=== PATIENT | male | born 1970 | race Caucasian/White ===

== ENCOUNTER 2019-03-06 13:10 | Emergency (ER) | payer BC ==
[~2019-03-06] VITALS: Ht 172.7 cm; Wt 81.7 kg
[~2019-03-06 13:10] MED LIST: FLOMAX PO; NOHOMEMEDICATIONS; NORCO 5-325 TA1 EACH PO
[2019-03-06 13:36] LABS: ABSOLUTE BASOPHILS 0.1 thou/uL (0.0-0.2); ABSOLUTE EOSINOPHILS 0.1 thou/uL (0.0-0.7); ABSOLUTE LYMPHOCYTES 1.3 thou/uL (0.8-5.3); ABSOLUTE MONOCYTES 0.6 thou/uL (0.0-1.2); ABSOLUTE NEUTROPHILS 9.9 thou/uL (1.6-8.1); BASOPHILS 0.5 %; EOSINOPHILS 0.5 %; HEMATOCRIT 45.4 % (42.0-52.0); LYMPHOCYTES 11.3 %; MCH 28.9 pg (26.0-34.0); MCHC 33.1 g/dL (28.0-37.0); MCV 87.2 fL (80.0-100.0); MONOCYTES 4.8 %; MPV 7.7 fl. (7.2-11.1); NUCLEATED RBCS 0 /100WBC; PLATELET COUNT* 218 thou/uL (150-400); POLYS 82.9 %; RBC 5.21 mil/uL (4.50-6.00); RDW-CV 13.4 % (10.5-14.5); WBC 11.9 thou/uL (4.0-11.0)
[2019-03-06 13:43] LABS: URINE BILIRUBIN NEGATIVE (Negative); URINE BLOOD 3+ (Negative); URINE CLARITY CLEAR; URINE COLOR YELLOW; URINE GLUCOSE-RANDOM NEGATIVE (Negative); URINE KETONES 1+ (Negative); URINE LEUKOCYTES-REFLEX NEGATIVE (Negative); URINE NITRITE-REFLEX NEGATIVE (Negative); URINE PROTEIN 1+ (Negative); URINE SPECIFIC GRAVITY >= 1.030 (1.005-1.030); URINE UROBILINOGEN 0.2 E.U./dl (0.2-1.0)
[2019-03-06 13:48] LABS: BACTERIA-REFLEX 1-9 Few /HPF (None Seen); CASTS None Seen /LPF (None Seen); CRYSTALS None Seen /LPF (None Seen); MUCUS None Seen strn/LPF (None Seen); SQUAMOUS 0-3 Few /LPF (0-3); URINE RBC >20 Many /HPF (0-2); URINE WBC-REFLEX 0-5 Rare /HPF (0-5)
[2019-03-06 13:50] LABS: ALBUMIN 4.1 g/dL (3.4-5.0); CREATININE 1.3 mg/dL (0.6-1.3); POTASSIUM 3.6 mmol/L (3.5-5.1); TOTAL BILIRUBIN 0.7 mg/dL (<0.1-1.0); TOTAL PROTEIN 7.6 g/dL (6.4-8.2)
[2019-03-06] MEDS ORDERED: CIPROFLOXACIN500 M1 PO (14:24)
[2019-03-06] MEDS ORDERED: FLOMAX0.4 MG PO (14:24)
[2019-03-06] MEDS ORDERED: PERCOCET 5-3251 EACH PO (14:24)
[2019-03-06 14:36] VITALS: BP 173/101
== END 2019-03-06 14:36 | disposition home or self-care (01) ==
LOC: M.ERS 13:10
PROVIDERS: Family Medicine
DX: N20.1 Calculus of ureter (principal); Z88.0 Allergy status to penicillin; Z91.02 Food additives allergy status

== ENCOUNTER 2019-03-10 13:26 | Inpatient (IN) | payer BC ==
[~2019-03-10] VITALS: Ht 172.7 cm; Wt 83.0 kg
[~2019-03-10 13:26] MED LIST changes: +CIPROFLOXACIN500 M1 PO; +FLOMAX0.4 MG PO; +PERCOCET 5-3251 EACH PO
[2019-03-10 13:32] VITALS: BP 160/96
[2019-03-10 13:59] LABS: ABSOLUTE EOSINOPHILS 0.1 thou/uL (0.0-0.7); ABSOLUTE NEUTROPHILS 7.9 thou/uL (1.6-8.1); BASOPHILS 0.5 %; EOSINOPHILS 0.7 %; HEMATOCRIT 41.6 % (42.0-52.0); HEMOGLOBIN 13.9 gm/dL (14.0-18.0); LYMPHOCYTES 10.2 %; MCH 28.9 pg (26.0-34.0); MCHC 33.5 g/dL (28.0-37.0); MCV 86.2 fL (80.0-100.0); MONOCYTES 10.3 %; MPV 8.1 fl. (7.2-11.1); NUCLEATED RBCS 0 /100WBC; PLATELET COUNT* 194 thou/uL (150-400); POLYS 78.3 %; RBC 4.83 mil/uL (4.50-6.00); RDW-CV 13.2 % (10.5-14.5)
[2019-03-10 14:07] LABS: ALBUMIN 3.6 g/dL (3.4-5.0); POTASSIUM 4.1 mmol/L (3.5-5.1); TOTAL PROTEIN 7.6 g/dL (6.4-8.2)
[2019-03-10 14:42] LABS: URINE BILIRUBIN NEGATIVE (Negative); URINE BLOOD TRACE (Negative); URINE CLARITY CLEAR; URINE COLOR YELLOW; URINE GLUCOSE-RANDOM NEGATIVE (Negative); URINE KETONES TRACE (Negative); URINE LEUKOCYTES-REFLEX NEGATIVE (Negative); URINE NITRITE-REFLEX NEGATIVE (Negative); URINE PROTEIN NEGATIVE (Negative); URINE UROBILINOGEN 0.2 E.U./dl (0.2-1.0)
[2019-03-10 16:15] VITALS: BP 148/98
--- NOTE | 2019-03-10 18:33 | NUR ---
48 YEAR OLD MALE PT ADMITTED WITH DX OF RENAL CALCULIAND HYDRONEPHROSIS. PT ARRIVES ON UNIT VIA GURNEY AND TRANSFERS TO THE BED WITHOUT DIFFICULTY. PT STATES HE HAS HAD SEVERAL KIDNEY STONES BUT THEY HAVE ALWAYS PASSED IN ABOUT 12 HOURS. THIS EPISODE STARTED ON WEDNESDAY, PT RETURNED TO THE ER TODAY AND HAS BEEN ADMITTED FOR POSSIBLE LITHOTRIPSY. ADMISSION PROCESS COMPLETED, UROLOGY PA HAS BEEN IN TO SEE HIM AND HAS EXPLAINED THE PROCEDURE TO HIM. PT IS RECEIVING IVF AT 100ML/HR AND HAS ORDERS FOR PO AND IV PAIN MEDICATIONS. MORPHINE 2MG GIVEN WITH SOME RELIEF OBTAINED. PT IS VOIDING IN URINALS AND ALL URINE NEEDS TO BE STRAINED. PT ENCOURAGED TO USE THE CALL LIGHT FOR ASSISTANCE WHEN NEEDED.
[2019-03-10 21:00] VITALS: BP 159/91
[2019-03-11 04:18] LABS: ABSOLUTE EOSINOPHILS 0.2 thou/uL (0.0-0.7); ABSOLUTE LYMPHOCYTES 1.6 thou/uL (0.8-5.3); ABSOLUTE NEUTROPHILS 5.6 thou/uL (1.6-8.1); BASOPHILS 0.3 %; EOSINOPHILS 2.1 %; HEMATOCRIT 35.7 % (42.0-52.0); HEMOGLOBIN 12.2 gm/dL (14.0-18.0); LYMPHOCYTES 19.1 %; MCH 29.7 pg (26.0-34.0); MCHC 34.2 g/dL (28.0-37.0); MCV 86.9 fL (80.0-100.0); MONOCYTES 12.2 %; NUCLEATED RBCS 0 /100WBC; PLATELET COUNT* 169 thou/uL (150-400); POLYS 66.3 %; RBC 4.11 mil/uL (4.50-6.00); WBC 8.5 thou/uL (4.0-11.0)
[2019-03-11 04:31] LABS: CALCIUM 8.7 mg/dL (8.5-10.1); CREATININE 1.8 mg/dL (0.6-1.3); POTASSIUM 4.5 mmol/L (3.5-5.1)
--- NOTE | 2019-03-11 06:40 | NUR ---
Alert and oriented x 4. He has been using the urinal to void and urine has been strained but nothing was observed. Vitals are stable. He has had pain meds x 3. He has had nothing by mouth since midnight.
[2019-03-11 08:20] VITALS: BP 128/80
[2019-03-11 11:39] VITALS: BP 128/80
--- NOTE | 2019-03-11 15:05 | NUR ---
PER HOUSE SUP PATIENT TO TRANSFER TO ICU FROM THE OR AFTER SURGERY. REPORT GIVEN TO GIFTY LAWSON.
--- NOTE | 2019-03-11 18:43 | NUR ---
PT TRANSFERRED TO ICU ROOM 008 POST OP URINARY STENT PLACEMENT. PACU REPORTS THAT PT STARTED HAVING DECREASED SATURATION AND COUGHING UP THICK RED BLOOD. PT PLACED ON BIPAP AND STABILIZED THEN BROUGHT TO ICU. PULMONOLOGY CONSULTED D/T CHEST XRAY RESULTS. PT BEING TREATED FOR POSSIBLE PULMONARY EDEMA. PULMONOLOGISTS GAVE ORDER THIS EVENING TO TRY PT ON HFNC AND MONITOR. PT TOLERATING AND MAINTAINING SATS >92% ON 8L OXYGEN AT THIS TIME. PT HAVING LARGE AMOUNT OF URINE OUTPUT. NPO AT THIS TIME. URINE NOTED TO BE BLOOD TINGED UPON ARRIVAL TO UNIT, ALTHOUGH IT HAS IMPROVED THROUGHOUT THIS SHIFT. NO OTHER CONCERNS AT THIS TIME. DISCUSSED PLAN OF CARE WITH PT. CLWR. WCTM.
--- NOTE | 2019-03-12 03:54 | NUR ---
ASSUMED CARE OF PT AT 1900. PT IS ALERT AND ORIENTED. VSS. PERRLA. PTS O2 HAS BEEN WEANED TO 4 LITERS. PT IS IN SINUS RYTHM ON THE TELEMETRY. PT IS RESTING COMFORTABLY IN BED. RESPIRATIONS ARE EVEN AND NONLABORED. WILL CONTINUE TO MONITOR PT.
[2019-03-12 03:56] LABS: HEMATOCRIT 39.1 % (42.0-52.0); HEMOGLOBIN 13.1 gm/dL (14.0-18.0); MCH 28.8 pg (26.0-34.0); MCHC 33.4 g/dL (28.0-37.0); MCV 86.1 fL (80.0-100.0); RBC 4.54 mil/uL (4.50-6.00); RDW-CV 12.9 % (10.5-14.5); WBC 9.3 thou/uL (4.0-11.0)
[2019-03-12 04:20] LABS: CALCIUM 9.1 mg/dL (8.5-10.1); CREATININE 1.4 mg/dL (0.6-1.3); POTASSIUM 4.3 mmol/L (3.5-5.1)
[2019-03-12 07:38] VITALS: BP 93/54
[2019-03-12 08:38] VITALS: BP 91/52
[2019-03-12 09:38] VITALS: BP 100/61
--- NOTE | 2019-03-12 10:30 | OP ---
[facility] [address] [place] [address] OPERATIVE REPORT Name: ALEXA BURT Room: [address] IN M.R.#: [id number] Admission: 03/10/19 Attend Phys: Tegan Overton Discharge: Date of : 70 Report #: [id number] THIS REPORT FOR: //name// CC: ARTURO physician/PCP Earle Mirza DATE OF SERVICE: 03/11/2019 INDICATIONS FOR PROCEDURE: The patient is a 48-year-old gentleman who was admitted through the Emergency Room due to left-sided flank pain. He was previously diagnosed with a left ureteral stone earlier in the week, then treated conservatively, but returned to the ER due to uncontrolled pain. He was admitted for pain control, hydration and straining of the urine. He was in overnight without spontaneous stone passage and continued to have significant pain, so he presents for cystoscopy with left ureteroscopic stone extraction, left stent placement. PREOPERATIVE DIAGNOSIS: Left ureteral calculus. POSTOPERATIVE DIAGNOSIS: Left ureteral calculus. PROCEDURE: Cystoscopy, left retrograde pyelogram, left ureteroscopic stone extraction, left stent placement. SURGEON: Manjeet Roe MD. ANESTHESIA: General. COMPLICATIONS: None. ESTIMATED BLOOD LOSS: Minimal. DESCRIPTION OF PROCEDURE: The patient was consented for the above procedure. He was given broad spectrum IV antibiotics preoperatively. He was given general anesthetic and placed in a dorsal lithotomy position. He was prepped and draped in usual sterile fashion over the genitalia. The stone was not seen on fluoroscopy. Cystoscopy was performed with a 21-Croatian sheath, 30 degree lens, which revealed a very fairly narrow caliber urethra, making the scope little bit snug, but I was able to access the bladder without difficulty. He had an elevated bladder neck, but minimal BPH. Examination of the bladder itself revealed no evidence of stones, ulcerations or tumors within the bladder, but we could see the edge of the ureteral calculus protruding up to the left ureterovesical junction. Based on that, I attempted to pass a Guidewire alongside the stone, but the stone was impacted enough that I could not get the Guidewire to go beside the stone via the cystoscope. This was attempted with a plain wire and with the 5-Croatian Pollack to try [place] [address] OPERATIVE REPORT Name: ALEXA BURT Room: [address] IN [facility].#: [id number] Admission: 03/10/19 Attend Phys: Tegan Overton Discharge: Date of : 70 Report #: [id number] left ureter. Based on that, the cystoscope was removed. The semirigid ureteroscope was inserted into the bladder and then I was able to use the ureteroscope with a wire to gain access to the ureter. I was able to get the wire past the stone and up into the left renal pelvis under fluoroscopic guidance without difficulty. With the ureteroscope in place, I then removed the wire and used a 0 tip Nitinol stone basket to basket the stone and the stone was dropped off into the bladder. The ureteroscope was then used to replace the Guidewire with some difficulty due to edema and angulation, but I was able to get the wire up into the renal pelvis. The ureteroscope was removed. A 5-Croatian Pollack was passed over the wire to the mid ureter. The wire was removed. A retrograde pyelogram was performed to ensure proper positioning of the catheter, which showed that it was in the mid ureter and there was no extravasation. Once I was comfortable with placement of the Pollack, I reinserted the wire up to the renal pelvis. The Pollack was removed. The wire was backloaded over the cystoscope. The cystoscope was reinserted into the bladder and a 4.8 x 28 double-J stent was passed over the wire with good curl noted in the renal pelvis and in the bladder after removing the wire. This was confirmed with cystoscopy and fluoroscopy. The stone was removed from the bladder via the cystoscope sheath. The bladder was drained and then the scope was removed. Lidocaine jelly was placed per urethra for local anesthesia. The patient was awakened and sent to recovery room and remained in stable condition. He will leave the stent in position for 1 week and then visit the office for stent removal. <ELECTRONICALLY SIGNED> By: Manjeet Roe MD 03/12/19 1030 1307 [id number] Santiago Roe MD /nt
[2019-03-12 11:49] VITALS: BP 110/65
--- NOTE | 2019-03-12 16:42 | NUR ---
PT PROGRESSING TOWARDS GOALS THIS SHIFT. ABLE TO TITRATE TO RA. NO BLOODY SPUTUM NOTED THIS SHIFT. PT DOWNGRADED TO MED/SURG. ANXIOUS TO MOVE ROOMS SO THAT HE HAD A BATHROOM. ANTICIPATE TRANSFER TO [facility] THIS EVENING. NO OTHER CONCERNS AT THIS TIME. CLWR. WCTM.
[2019-03-12 17:50] VITALS: BP 118/78
--- NOTE | 2019-03-12 17:58 | NUR ---
PT TRANSFERRED TO [facility]. REPORT GIVEN TO RECEIVING NURSE. NO OTHER CONCERNS AT THIS TIME.
--- NOTE | 2019-03-12 18:24 | NUR ---
PATIENT TRANSFERRED TO ROOM 110 FROM ICU. REPORT RECEIVED FROM GIFTY LAWSON. NO COMPLAINTS OF PAIN. PATIENT UP TO BATHROOM, HAD A LARGE BM. VITALS STABLE. DRESSING TO IV CHANGED, SL. PATIENT HOPING TO GO HOME TOMORROW.
[2019-03-12 20:45] VITALS: BP 116/64
[2019-03-13 03:34] LABS: HEMATOCRIT 36.6 % (42.0-52.0); HEMOGLOBIN 12.3 gm/dL (14.0-18.0); MCH 28.9 pg (26.0-34.0); MCHC 33.5 g/dL (28.0-37.0); MCV 86.2 fL (80.0-100.0); MPV 8.2 fl. (7.2-11.1); RBC 4.24 mil/uL (4.50-6.00); RDW-CV 13.1 % (10.5-14.5); WBC 14.8 thou/uL (4.0-11.0)
[2019-03-13 03:47] LABS: CREATININE 1.3 mg/dL (0.6-1.3); POTASSIUM 4.4 mmol/L (3.5-5.1)
[2019-03-13 04:00] VITALS: BP 84/43
[2019-03-13 06:00] VITALS: BP 98/52
--- NOTE | 2019-03-13 06:12 | NUR ---
PT STATES HE SLEPT FAIRLY WELL OVERNIGHT AFTER SHOWER AT HS. AM LABS DRAWN. TO HAVE CXR TODAY. LAC SL, HAS DENIED NEED FOR PAIN OR NAUSEA MEDS. TOLERATING REGULAR DIET WITHOUT DIFFICULTY. VOIDING WITHOUT DIFFICULTY PT STATES. ABLE TO USE CALL LITE AND MAKE NEEDS KNOWN. ANTICIPATING DISCHARGE HOME TODAY FOR UROLOGY F/U OUTPT.
--- NOTE | 2019-03-13 08:27 | CON ---
[address] [address] CONSULTATION Name: ALEXA BURT Room: [address] IN M.R.#: [id number] Admission: 03/10/19 Attend Phys: Tegan Overton Discharge: Date of : 70 Report #: [id number] THIS REPORT FOR: //name// CC: ARTURO physician/PCP Earle Mirza REASON FOR CONSULTATION: Hemoptysis, respiratory failure. HISTORY OF PRESENT ILLNESS: This is a 48-year-old male patient who was admitted to this facility on 03/10/2019 with left-sided abdominal pain or flank pain that started on the Wednesday of this week. The pain was constant and sharp and got worse. He presented to the ER and he was found to have kidney stone disease. Initially, he went home with medical management and then came back with recurrence of the pain. He had no difficulty with urination at that time. During this evaluation, he underwent a CT scan for kidney stone protocol that demonstrated left obstructive uropathy and he was evaluated by the Urology and he underwent cystoscopy, left retrograde pyelogram, and left ureteroscopic stone extraction with stent placement. Postoperatively, the RT was called because the patient had difficulty breathing. He was placed on BiPAP and apparently, he was coughing up blood. He was brought into the ICU on BiPAP and slowly, the bleeding stopped. His chest x-ray demonstrated bilateral diffuse patchy infiltrate. Today when I saw him, he was on room air. He was doing well. He is coughing up some clear sputum. No further hemoptysis. LABORATORY DATA: His white blood count 9.3, hemoglobin 13.1 and platelets of 227. His creatinine initially 2, went down to 1.4 today with a bicarbonate of 31 and sodium 138. PAST MEDICAL HISTORY: Kidney stone disease and tonsillectomy. PAST SURGICAL HISTORY: Tonsillectomy. FAMILY HISTORY: Lung cancer, tonsillar cancer in his mother. SOCIAL HISTORY: Does not smoke, does not drink alcohol, does not abuse drugs. ALLERGIES: PENICILLIN AND BANANA. HOME MEDICATIONS: Nothing regular. CURRENT MEDICATIONS: Reviewed. REVIEW OF SYSTEMS: All review of systems reviewed with the patient, negative other than as mentioned above. He has no fever, no further abdominal pain, no further hemoptysis, no lower extremity edema, no bleeding from any orifice, [place] [address] CONSULTATION Name: ALEXA BURT Room: [address]#: [id number] Admission: 03/10/19 Attend Phys: Tegan Overton Discharge: Date of : 70 Report #: [id number] The rest of the review of system was negative. PHYSICAL EXAMINATION: VITAL SIGNS: He was on room air, O2 saturation 97%, blood pressure 100/61, respiratory rate of 16, pulse rate of 58. HEAD: Normocephalic, atraumatic. EYES: Pupils reactive to light. ORAL CAVITY: Moist mucous membrane. Mallampati of 2-3. NECK: Supple. No palpable lymph node, no palpable thyroid. Trachea is central. HEART: S1, S2, no murmur. ABDOMEN: Benign, soft, lax, nontender. CHEST: Actually clear to auscultation. No added sounds. No wheezes, no crackles. EXTREMITIES: Lower extremity: No edema, no calf tenderness. SKIN: Normal for age and race, no rash. PSYCHIATRIC: Mood and affect appropriate. DIAGNOSTIC DATA: His blood work reviewed as above. His chest x-ray yesterday and today continues to show diffuse bilateral infiltrate, more in the right than the left. IMPRESSION: 1. Acute hypoxic respiratory failure. 2. Acute postop respiratory failure. 3. Hemoptysis, resolved. 4. Suspect noncardiogenic pulmonary edema. 5. Kidney stone disease. PLAN AND RECOMMENDATIONS: 1. The constellation of symptoms and events makes me suspect this is a noncardiogenic pulmonary edema, complicating the picture of hemoptysis. He responded to the Lasix we gave him yesterday and currently, he is on room air. I cannot rule out aspiration episode during the intubation that is why we have him on antibiotic, although I will change it to p.o. I gave him steroids IV. I will change it to p.o. too. 2. Monitor his oxygen status. I did recommend for the patient a followup chest x-ray in six weeks to establish resolution of the pulmonary infiltrate, otherwise he needs further workup. The patient told me he was told in the past that based on a sleep study, he had mild sleep apnea and he does not need CPAP therapy. I still recommend for the patient to have repeat evaluation if he continues to have symptoms. He denied hypersomnia. [address] [address] CONSULTATION Name: ALEXA BURT Room: M.110-P ADM IN M.R.#: [id number] Admission: 03/10/19 Attend Phys: Tegan Overton Discharge: Date of : 70 Report #: [id number] Thank you for the consult. <ELECTRONICALLY SIGNED> By: Isi Garcia MD 03/13/19 0827 [id number] [id number] Okeefe MD /nt
[2019-03-13] MEDS ORDERED: DOXYCYCLINE 10100 MG PO (11:24)
[2019-03-13] MEDS ORDERED: PREDNISONE 10 M10 MG PO (11:25)
[2019-03-13 11:28] VITALS: BP 98/52
[2019-03-13 11:34] VITALS: BP 103/62
[2019-03-13 12:47] VITALS: BP 98/52
--- NOTE | 2019-03-13 13:00 | NUR ---
PATIENT IS ALERT AND ORIENTED TODAY VERY PLEASANT. NO COMPLAINTS OF ANY KIND TODAY. VITAL SIGNS STABLE ON ROOM AIR. PATIENT HAS A GOOD APPETITE TODAY. PATIENT IS BEING DISCHARGE TO HOME. DISCHARGE INSTRUCTIONS AND PRESCRIPTIONS GIVEN TO PATIENT. QUESTIONS ANSWERED FOR PATIENT. PATIENT LEFT TO HOME.
[2019-03-15 11:08] LABS: STONE CA OXALATE MONOHYDRATE 97 % (()); STONE COLOR Brown (()); STONE SIZE 3x3x2 mm (()); STONE WEIGHT 15.1 mg (())
== END 2019-03-13 12:34 | disposition home or self-care (01) | DRG 659 ==
LOC: M.ERS 13:26 → M.ORTHSURG 15:32 → M.TBA-ER 15:32 → M.ORTHSURG 16:36 → M.ICU 03-11 15:30 → M.ORTHSURG 03-12 17:44
PROVIDERS: Nurse Practitioner; Urology; ADMIT Internal Medicine
PROC: 0TC78ZZ Extirpation of Matter from Left Ureter, Via Natural or Artificial Opening Endoscopic (ICD-10-PCS; principal; 2019-03-11)
PROC: 0T778DZ Dilation of Left Ureter with Intraluminal Device, Via Natural or Artificial Opening Endoscopic (ICD-10-PCS; principal; 2019-03-11)
PROC: BT1F1ZZ Fluoroscopy of Left Kidney, Ureter and Bladder using Low Osmolar Contrast (ICD-10-PCS; principal; 2019-03-11)
DX: N13.2 Hydronephrosis with renal and ureteral calculous obstruction (principal); J96.01 Acute respiratory failure with hypoxia; J15.6 Pneumonia due to other Gram-negative bacteria; J69.0 Pneumonitis due to inhalation of food and vomit; N17.0 Acute kidney failure with tubular necrosis; N40.0 Benign prostatic hyperplasia without lower urinary tract symptoms; K59.00 Constipation, unspecified; Z79.899 Other long term (current) drug therapy; Z88.0 Allergy status to penicillin; Z91.018 Allergy to other foods; Z80.1 Family history of malignant neoplasm of trachea, bronchus and lung; Z81.8 Family history of other mental and behavioral disorders; Z80.8 Family history of malignant neoplasm of other organs or systems